=== PATIENT | female | born 2000 | race Caucasian/White ===

== ENCOUNTER 2019-11-27 13:36 | Emergency (ER) | payer OTHER ==
--- NOTE | 2019-11-27 14:12 | ED ---
Head Injury - HPI Summary HPI Summary: 19 year old female presents with head injury today. States she was going off the diving board and hit the board. She was closed to the board when she hit it. No other injury. no LOC. She remembers the entire event. She has minimal pain on top of her head. She denies any photophobia. no change in vision. No nausea and vomiting. Has been acting normally. she has superficial laceration to scalp that continues to bleed. tetanus up to date. 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 Time Seen by Provider: 11/27/19 13:53 Pain Intensity: 4 PMH/Surg Hx/FS Hx/Imm Hx Endocrine/Hematology History: Denies: Hx Anticoagulant Therapy Respiratory History: Denies: Hx Asthma Infectious Disease History: No Infectious Disease History: Denies: Traveled Outside the in Last 30 Days - Family History Known Family History: Positive: Non-Contributory - Social History Alcohol Use: None Substance Use Type: Reports: None Smoking Status (MU): Never Smoked Tobacco Review of Systems Negative: Fever Negative: Chest Pain Negative: Shortness Of Breath Positive: Other - scalp laceration Positive: Headache All Other Systems Reviewed And Are Negative: Yes Physical Exam Triage Information Reviewed: Yes Vital Signs On Initial Exam: Initial Vitals Temp Pulse Resp BP Pulse Ox 98.2 F 70 14 145/90 100 11/27/19 13:38 11/27/19 13:38 11/27/19 13:38 11/27/19 13:38 11/27/19 13:38 Vital Signs Reviewed: Yes Appearance: Positive: Well-Appearing Skin: Positive: Warm, Dry, Other - 1cm superficial laceration to scalp Head/Face: Positive: Normal Head/Face Inspection, Other - no step off, racoon eyes, helms sign, contusion to head Eyes: Positive: Normal, EOMI, LEATHA, Conjunctiva Clear ENT: Positive: Pharynx normal, TMs normal Respiratory/Lung Sounds: Positive: Clear to Auscultation, Breath Sounds Present Cardiovascular: Positive: Normal, RRR Musculoskeletal: Positive: Normal Neurological: Positive: Sensory/Motor Intact, Alert, Oriented to Person Place, Time, CN Intact II-III Psychiatric: Positive: Normal - [place] Coma Scale Best Eye Response: 4 - Spontaneous Best Motor Response: 6 - Obeys Commands Best Verbal Response: 5 - Oriented Coma Scale Total: 15 Procedures - Sedation Patient Received Moderate/Deep Sedation with Procedure: No - Laceration/Wound Repair 1 Location: head Description: Linear Length, Depth and Shape: 1cm superficial Irrigated w/ Saline (ccs): 200 Closure: Donna #__ - 1 Diagnostics - Vital Signs Vital Signs Temp Pulse Resp BP Pulse Ox 11/27/19 13:38 98.2 F 70 14 145/90 100 - Laboratory Lab Statement: Any lab studies that have been ordered have been reviewed, and results considered in the medical decision making process. Head Injury Course/Dx Course Of Treatment: 19 year old female presents with head injury today. States she was going off the diving board and hit the board. She was closed to the board when she hit it. No other injury. no LOC. She remembers the entire event. She has minimal pain on top of her head. She denies any photophobia. no change in vision. No nausea and vomiting. Has been acting normally. she has superficial laceration to scalp that continues to bleed. tetanus up to date. On exam has contusion noted to scalp with 1cm superficial laceration to her scalp that cleaned and placed one donna. Normal neuro exam. According to [place] [facility] rules does not need any head imaging. gave head injury precautions. told follow up with [facility] to get cleared for sports. Patient understands and agrees with the plan. - Diagnoses Differential Diagnosis/HQI/PQRI: Concussion Without LOC, Contusion, Laceration Provider Diagnoses: Head injury, Scalp laceration Discharge ED - Sign-Out/Discharge Documenting (check all that apply): Patient Departure - Discharge Plan Condition: Good Disposition: HOME Patient Education Materials: Head Injury (ED), Staple Care (ED) Referrals: No Primary Care Phys,NOPCP [Primary Care Provider] - Additional Instructions: Take Tylenol or ibuprofen for pain every 6 hours Do not scrub staple area Return to ED, urgent care or primary in 7-10 days to have donna removed Follow up with primary or [facility] within [facility] days to get cleared to sports Return to ED if develop any vomit again or any new or worsening symptoms - Billing Disposition and Condition Condition: GOOD Disposition: Home
[2019-11-27 14:48] VITALS: BP 138/91
== END 2019-11-27 14:46 | disposition home or self-care (01) ==
LOC: ED 13:36
DX: S09.90XA Unspecified injury of head, initial encounter (principal); S01.01XA Laceration without foreign body of scalp, initial encounter; W22.8XXA Striking against or struck by other objects, initial encounter; Y93.12 Activity, springboard and platform diving; Y92.34 Swimming pool (public) as the place of occurrence of the external cause
CPT/HCPCS: 12001; 99281